=== PATIENT | male | born 1970 | race Caucasian/White ===

== ENCOUNTER 2016-10-14 08:24 | Emergency (ER) | payer MEDICARE, BC ==
[~2016-10-14] VITALS: Ht 182.9 cm; Wt 110.0 kg
[~2016-10-14 08:24] MED LIST: CLIN-73 PO; GLYB5TAB3 PO; METF-480 PO
[2016-10-14 08:25] VITALS: Ht 182.9 cm; Wt 110.0 kg
--- NOTE | 2016-10-14 08:38 | ERD ---
ER Documentation Chief Complaint Date/Time DATE: 10/14/16 Chief Complaint Abscess HPI The patient is a 46-year-old male with a history of diabetes mellitus, hypertension and schizophrenia who presents to the Emergency Department with complaint of an abscess to his buttock region. The patient reports a history of multiple similar prior abscesses, which occur every 6 months-1 year. They always occur in the same spot. He notes onset of these symptoms approximately one month ago, but states that his symptoms worsened two days ago. He reports pain, swelling, warmth and redness to his buttock region. He has not yet taken any medication for pain relief. Denies any bleeding, or spontaneous drainage. Denies fevers, chills, nausea, vomiting. Denies chest pain, palpitations or shortness of breath. Patient presents today requesting incision and drainage, as he has had in the past. ROS All systems reviewed and are negative except as per history of present illness. Medications Home Meds Active Scripts Clindamycin Hcl* (Clindamycin Hcl*) 300 Mg Capsule, 300 MG PO TID for 7 Days, CAP Prov:JV BRONSON PA-C 10/14/16 Clindamycin Hcl* (Clindamycin Hcl*) 300 Mg Capsule, 300 MG PO TID, #10 CAP Prov:MADI WATTS DO 09/25/15 Reported Medications Metformin* (Glucophage*) 850 Mg Tablet, PO BID, 0 Refills 03/31/10 Glyburide* (Glyburide*) 5 Mg Tablet, PO BID, 0 Refills 03/31/10 Allergies Allergies: Coded Allergies: No Known Allergy (Unverified , 02/28/13) PMhx/Soc History of Surgery: No Anesthesia Reaction: No Hx Neurological Disorder: No Hx Respiratory Disorders: No Hx Psychiatric Problems: No Hx Miscellaneous Medical Probl: Yes (DM) Hx Alcohol Use: No Hx Substance Use: No Hx Tobacco Use: No Physical Exam Vitals Vital Signs Date Time Temp Pulse Resp B/P Pulse Ox O2 Delivery O2 Flow Rate FiO2 10/14/16 08:25 98.0 72 18 175/76 99 Physical Exam Const: This is a pleasant 46-year-old male. Well-developed, well-nourished , in no acute distress. Head: Atraumatic Eyes: Normal Conjunctiva ENT: Normal External Ears, Nose and Mouth. Neck: Supple. Resp: Clear to auscultation bilaterally Cardio: Regular rate and rhythm, no murmurs Abd: Soft, non tender, non distended. Skin: 3 cm x 2 cm left-sided fluctuant, erythematous, tender perianal abscess. No spontaneous drainage. No bleeding. No crepitus. No scrotal involvement. No sinus tracts. Ext: No clubbing, cyanosis, or edema. Moving all extremities. Neur: Awake. Alert and oriented x 3. Motor intact. Psych: Cooperative. Results 24 hrs Current Medications Medications (Trade) Dose Ordered Sig/Aristeo Route PRN Reason Start Time Stop Time Status Last Admin Dose Admin Lidocaine (Xylocaine 1% (Mdv) 20 ml) 20 ml ONCE ONCE SC 10/14/16 09:00 10/14/16 09:01 DC Procedures/MDM The case was reviewed and discussed with Dr. Bella, who agrees with the plan of care including treatment and advanced imaging as appropriate. Considered CT abdomen and pelvis with IV contrast to rule out underlying perirectal abscess with fistula formation. However, given that patient has diabetes on Metformin, there is concern for contrast-induced nephropathy, and given the patient's history of schizophrenia, there is concern that he will not be compliant with recommendation to avoid Metformin for the following 48 hours, in order to reduce risk for nephropathy. Therefore, CT abdomen and pelvis without contrast appears to be the safer option at this time, and will be performed. DIAGNOSTIC TESTS AND INTERPRETATION: PROCEDURE: CT Abdomen and Pelvis without contrast. CLINICAL INDICATION: Perirectal vs. perianal abscess. TECHNIQUE: Routine axial tomographic images of the abdomen and pelvis were obtained from the domes the diaphragm to the symphysis pubis. The patient was scanned withoutoral or intravenous contrast. Coronal and sagittal reformatted images were obtained from the axial source images. Images were reviewed on a high-resolution PACS workstation. The total exam CTDI equals 22.19 mGy and the total exam DLP equals 1597.49 mGy-cm. One or more of the following dose reduction techniques were used: Automated exposure control, adjustment of the mA and / or kV according to patient size, or use of iterative reconstruction technique. The patient was unable to receive IV contrast secondary to metformin use and renal function. COMPARISON: None. FINDINGS: The visualized portions of the lung bases are clear. Evaluation of the intra-abdominal solid organs is somewhat limited on this noncontrast examination. The liver appears normal in size. There is no intra or extrahepatic biliary dilatation. The gallbladder is unremarkable by CT criteria. The spleen, pancreas, and adrenal glands are unremarkable. The kidneys are symmetric in size. No renal, ureteral, or bladder calculi are identified. No perinephric inflammatory changes are identified. The urinary bladder is grossly unremarkable. The bowel demonstrates normal course and caliber. There is no evidence of bowel obstruction. The appendix is normal in appearance. The pelvic organs are grossly unremarkable. No intraperitoneal free fluid, free air, or abscess is identified. No retroperitoneal, mesenteric, or inguinal lymphadenopathy is identified. The aorta is normal in caliber. Calcifications are seen within the infrarenal portion of the abdominal aorta. There is subtle fullness of the left perirenal soft tissues along the medial margin of the ischial tuberosity. The osseous structures are unremarkable. No significant subcutaneous soft tissue abnormalities are seen. IMPRESSION: 1. Limited noncontrast CT of the abdomen and pelvis. No acute intra-abdominal abnormality identified. 2. Mild asymmetric fullness of the left pararenal soft tissues along the medial margin of the ischial tuberosity. No definite abscess is seen. 3. Aortic atherosclerosis. .Elina Guillen MD, MD Date Time Electronically viewed and signed by .Elina Guillen MD, MD on 10/14/2016 09 :24 Of note, typo above, as radiologist called and meant to write "perianal" abscess. PROCEDURE: INCISION AND DRAINAGE OF ABSCESS INDICATION: Left perianal abscess CONSENT:Consent was obtained from the patient prior to the procedure. Indications, risks, and benefits were explained at length. PROCEDURE SUMMARY: A timeout protocol was performed prior to initiating the procedure. The patient was positioned appropriately. The area was prepared and draped in the usual sterile manner. The site was adequately anesthetized with approximately 2.5 cc 1% lidocaine without epinephrine. The are was cleaned/ irrigated with 10% betadine solution/NaCl. A sterile #11 blade scalpel was used to make a single linear 1 vertical incision and the copious drainage of purulent discharge was expressed. The abscess was explored thoroughly and sequestered pockets were opened. Bleeding was minimal. Packing: The wound was packed with iodoform gauze The patient tolerated the procedure well without complications. The wound was dressed with sterile 4 x 4 gauze and paper tape. Standard post-procedure care was explained and return precautions were given. MEDICAL DECISION MAKING: This is a 46-year-old male presenting to the emergency department with a left-sided perianal abscess that underwent incision and drainage. CT imaging performed revealed no evidence of perirectal abscess or fistula formation. No scrotal involvement or evidence of Epi's gangrene. The patient's abscess underwent I&D, and the patient tolerated the procedure well with no present complication. Packing was placed. At this time the patient is in stable condition and therefore he can be discharged home with a prescription for Clindamycin and given strict return precautions for signs of deteriorating or worsening condition. He is advised to follow up with his primary medical provider in 2 days for reevaluation and further management or to return to the ER sooner for any new or worsening symptoms. I shared my medical decision making and plan with the patient at length and in great detail , and he verbally understands and agrees with the plan for further observation and care as an outpatient. At the time of discharge, all questions were answered. Departure Diagnosis: Primary Impression: Perianal abscess Condition: Stable Patient Instructions: Abscess Drainage, Abscess, Antiobiotic Treatment Only, Abscess, Incision And Drainage Additional Instructions: FOLLOW UP IN 2 DAYS FOR WOUND CHECK, PACKING REMOVAL, REEVALUATION AND FURTHER MANAGEMENT. PLEASE TAKE ALL ANTIBIOTICS DIRECTED, FOUR TIMES A DAY, EVERY 6 HOURS. RETURN TO THE ED SOONER FOR ANY NEW OR WORSENING SYMPTOMS. PLEASE FOLLOW UP WITH YOUR PRIMARY MEDICAL PROVIDER FOR FURTHER EVALUATION AND MANAGEMENT. GIVEN THAT YOU HAVE BEEN EXPERIENCING THESE SYMPTOMS RECURRENTLY, EVERY 6 MONTHS - 1 YEAR, PLEASE DISCUSS REFERRAL TO GENERAL SURGEON FOR SURGICAL EVALUATION. JV BRONSON PA-C Oct 14, 2016 08:38
[2016-10-14] MEDS ORDERED: LIDOCAINE 1% (MDV) 20 ML INJ SC ONE (09:00)
--- NOTE | 2016-10-14 09:24 | RADRPT ---
PROCEDURE: CT Abdomen and Pelvis without contrast. CLINICAL INDICATION: Perirectal abscess. TECHNIQUE: Routine axial tomographic images of the abdomen and pelvis were obtained from the domes the diaphragm to the symphysis pubis. The patient was scanned withoutoral or intravenous contrast. Coronal and sagittal reformatted images were obtained from the axial source images. Images were re viewed on a high-resolution PACS workstation. The total exam CTDI equals 22.19 mGy and the total exa m DLP equals 1597.49 mGy-cm. One or more of the following dose reduction techniques were used: Aut omated exposure control, adjustment of the mA and / or kV according to patient size, or use of itera tive reconstruction technique. The patient was unable to receive IV contrast secondary to metformin use and renal function. COMPARISON: None. FINDINGS: The visualized portions of the lung bases are clear. Evaluation of the intra-abdominal solid or yvonne is somewhat limited on this noncontrast examination. The liver appears normal in size. There is no intra or extrahepatic biliary dilatation. The gallbladder is unremarkable by CT criteria. Th e spleen, pancreas, and adrenal glands are unremarkable. The kidneys are symmetric in size. No renal, ureteral, or bladder calculi are identified. No perine phric inflammatory changes are identified. The urinary bladder is grossly unremarkable. The bowel demonstrates normal course and caliber. There is no evidence of bowel obstruction. The a ppendix is normal in appearance. The pelvic organs are grossly unremarkable. No intraperitoneal fr ee fluid, free air, or abscess is identified. No retroperitoneal, mesenteric, or inguinal lymphadeno hieu is identified. The aorta is normal in caliber. Calcifications are seen within the infrarenal p ortion of the abdominal aorta. There is subtle fullness of the left perirenal soft tissues along the medial margin of the ischial tuberosity. The osseous structures are unremarkable. No significant subcutaneous soft tissue abnormalities are seen. IMPRESSION: 1. Limited noncontrast CT of the abdomen and pelvis. No acute intra-abdominal abnormality identifi ed. 2. Mild asymmetric fullness of the left pararenal soft tissues along the medial margin of the ischi al tuberosity. No definite abscess is seen. 3. Aortic atherosclerosis. RPTAT: .Elina Guillen MD, MD Date Time Electronically viewed and signed by .Elina Guillen MD, MD on 10/14/2016 09:24 .G/
[2016-10-14] MEDS ORDERED: CLIN-73 PO (09:49)
== END 2016-10-14 10:10 | disposition home or self-care (01) ==
LOC: FTE 08:24
DX: K61.0 Anal abscess (principal); E11.9 Type 2 diabetes mellitus without complications; I10 Essential (primary) hypertension; Z79.84 Long term (current) use of oral hypoglycemic drugs
CPT/HCPCS: 74176

== ENCOUNTER 2016-10-15 19:32 | Emergency (ER) | payer MEDICARE, BC ==
[~2016-10-15] VITALS: Ht 177.8 cm; Wt 116.5 kg
[2016-10-15 19:35] VITALS: Ht 177.8 cm; Wt 116.5 kg
--- NOTE | 2016-10-15 22:04 | ERD ---
ER Documentation Chief Complaint Date/Time DATE: 10/15/16 TIME: 22:00 Chief Complaint wound check- abscess right buttocks POSt i and D HPI Patient is a 46-year-old male who is here for a 24-hour wound check for a perirectal abscess that was drained here yesterday. Patient states he removed the packing yesterday. He has mild to moderate pain. Denies any continual bleeding or drainage. He states he has not yet picked up the antibiotics. Denies fever. ROS All systems reviewed and are negative except as per history of present illness. Medications Home Meds Active Scripts Clindamycin Hcl* (Clindamycin Hcl*) 300 Mg Capsule, 300 MG PO TID for 7 Days, CAP Prov:JV BRONSON PA-C 10/14/16 Clindamycin Hcl* (Clindamycin Hcl*) 300 Mg Capsule, 300 MG PO TID, #10 CAP Prov:MADI WATTS DO 09/25/15 Reported Medications Metformin* (Glucophage*) 850 Mg Tablet, PO BID, 0 Refills 03/31/10 Glyburide* (Glyburide*) 5 Mg Tablet, PO BID, 0 Refills 03/31/10 Allergies Allergies: Coded Allergies: No Known Allergy (Unverified , 02/28/13) PMhx/Soc Medical and Surgical Hx: pt denies Surgical Hx History of Surgery: No Anesthesia Reaction: No Hx Neurological Disorder: No Hx Respiratory Disorders: No Hx Psychiatric Problems: No Hx Miscellaneous Medical Probl: Yes (DM) Hx Alcohol Use: No Hx Substance Use: No Hx Tobacco Use: No FmHx Family History: No diabetes Physical Exam Vitals Vital Signs Date Time Temp Pulse Resp B/P Pulse Ox O2 Delivery O2 Flow Rate FiO2 10/15/16 19:35 97.9 109 20 181/103 98 Physical Exam General: well developed, well nourished, alert, nontoxic, no distress Head: normocephalic, atraumatic Neck: Supple, nontender, no lymphadenopathy, no midline tenderness Respiratory: Clear to auscaultation bilaterally, speaks in full sentences, no use of accesory muscles or labored breathing, no rales, ronchi, or wheezing Cardiovascular: RRR, No murmurs GI: soft, non tender, non distended, negative murphys sign, negative mcburneys point tenderness, no cva tenderness bilaterally, no rebound or guarding rectal: Healing abscess, no active bleeding or drainage, nontender, no fluctuance Results 24 hrs Current Medications Medications (Trade) Dose Ordered Sig/Aristeo Route PRN Reason Start Time Stop Time Status Last Admin Dose Admin Benazepril HCl (Lotensin) 10 mg ONCE ONCE PO 10/15/16 22:30 10/15/16 22:30 DC Procedures/MDM 46-year-old male is here for a wound check for a perirectal abscess that was drained yesterday. It is healing appropriately without any evidence of infection. Patient wants me to attempt to re-drained at this time however both myself and my colleague KULWANT Cintron and we agreed that there is no indication for further incision and drainage at this time. Patient has not yet picked up the antibiotics and I recommended he begin antibiotic treatment as recommended. Patient's blood pressure was elevated here in triage his blood pressure was 181/103 and then at time of discharge his blood pressure was 169/120. Patient states did not take his blood pressure medication benazepril this morning. I reviewed these blood pressure readings with my supervising physician Dr. Infante who recommended we give him a dose of his blood pressure medication here and monitor him until his blood pressure drops to a safe level. However patient did not want to wait and he signed out AGAINST MEDICAL ADVICE and he understands the risks of leaving with this elevated blood pressure including worsening of sx, complications, stroke, acs,or even . Patient however left before signing the AGAINST MEDICAL ADVICE sheet and therefore eloped. Recommended this patient follow up with her primary care doctor within 48 hours or return to the emergency room for any worsening of symptoms. However this time I do believe there is suitable for outpatient management. I answered all their questions and they agreed with the plan and were discharged home. Departure Diagnosis: Primary Impression: Perirectal abscess Additional Impression: Encounter for wound re-check Condition: Serious Patient Instructions: Wound Care Referrals: COMMUNITY CLINICS YOU HAVE RECEIVED A MEDICAL SCREENING EXAM AND THE RESULTS INDICATE THAT YOU DO NOT HAVE A CONDITION THAT REQUIRES URGENT TREATMENT IN THE EMERGENCY DEPARTMENT. FURTHER EVALUATION AND TREATMENT OF YOUR CONDITION CAN WAIT UNTIL YOU ARE SEEN IN YOUR DOCTORS OFFICE WITHIN THE NEXT 1-2 DAYS. IT IS YOUR RESPONSIBILITY TO MAKE AN APPOINTMENT FOR FOLOW-UP CARE. IF YOU HAVE A PRIMARY DOCTOR --you should call your primary doctor and schedule an appointment IF YOU DO NOT HAVE A PRIMARY DOCTOR YOU CAN CALL OUR PHYSICIAN REFERRAL HOTLINE AT IF YOU CAN NOT AFFORD TO SEE A PHYSICIAN YOU CAN CHOSE FROM THE FOLLOWING [facility] [id number] [facility] [address] [facility] [address] [facility] [address] [facility] [address] [facility] [facility] [address] Additional Instructions: Call your primary care doctor TOMORROW for an appointment during the next 1-2 days.See the doctor sooner or return here if your condition worsens before your appointment time. FCO CARLTON PA-C Oct 15, 2016 22:04
[2016-10-15] MEDS ORDERED: BENAZEPRIL 10 MG TAB PO ONE (22:30)
== END 2016-10-15 22:14 | disposition left against medical advice (07) ==
LOC: FTE 19:32
DX: K61.1 Rectal abscess (principal); E11.9 Type 2 diabetes mellitus without complications; I10 Essential (primary) hypertension; Z79.84 Long term (current) use of oral hypoglycemic drugs
CPT/HCPCS: 99281

== ENCOUNTER 2016-10-18 15:22 | Emergency (ER) | payer MEDICARE, BC ==
[~2016-10-18] VITALS: Wt 115.5 kg
--- NOTE | 2016-10-18 17:08 | ERD ---
ER Documentation Chief Complaint Date/Time DATE: 10/18/16 TIME: 17:06 Chief Complaint RECHECK ON RECTAL ABCESS, SEEN HERE 2 DAYS AGO WITH SAME S/S HPI This 46-year-old male presents with a rectal lesion. He was seen here twice this week and treated for a perirectal abscess. He had some incision and drainage and then a recheck for possible persistent swelling. Re-incision was not performed. Patient felt that there was possibly a recurrent abscess in and try to do a self incision and drainage at home with a steak knife. He complains of bleeding. He is requesting a recheck. Denies fevers, vomiting, shortness breath or chest pain. Patient is requesting suturing of the open wound on his rectum. ROS All systems reviewed and are negative except as per history of present illness. Medications Home Meds Active Scripts Clindamycin Hcl* (Clindamycin Hcl*) 300 Mg Capsule, 300 MG PO TID for 7 Days, CAP Prov:JV BRONSON PA-C 10/14/16 Clindamycin Hcl* (Clindamycin Hcl*) 300 Mg Capsule, 300 MG PO TID, #10 CAP Prov:MADI WATTS DO 09/25/15 Reported Medications Metformin* (Glucophage*) 850 Mg Tablet, PO BID, 0 Refills 03/31/10 Glyburide* (Glyburide*) 5 Mg Tablet, PO BID, 0 Refills 03/31/10 Allergies Allergies: Coded Allergies: No Known Allergy (Unverified , 10/18/16) PMhx/Soc History of Surgery: No Anesthesia Reaction: No Hx Neurological Disorder: No Hx Respiratory Disorders: No Hx Psychiatric Problems: No Hx Miscellaneous Medical Probl: Yes (DM) Hx Alcohol Use: No Hx Substance Use: No Hx Tobacco Use: No Smoking Status: Never smoker Physical Exam Vitals Vital Signs Date Time Temp Pulse Resp B/P Pulse Ox O2 Delivery O2 Flow Rate FiO2 10/18/16 15:27 97.5 111 18 181/100 95 Physical Exam Const: [] Alert, [id number]. Head: Atraumatic Eyes: Normal Conjunctiva ENT: Normal External Ears, Nose and Mouth. Neck: Full range of motion..~ No meningismus. Resp: Clear to auscultation bilaterally Cardio: Regular rate and rhythm, no murmurs Abd: Soft, non tender, non distended. Normal bowel sounds Skin: No petechiae or rashes Back: No midline or flank tenderness Ext: No cyanosis, or edema Neur: Awake and alert Psych: Normal Mood and Affect Rectal exam shows open healing wound with large thrombosis. There is no significant erythema, fluctuance appreciated. Procedures/MDM Large clots were removed from the open lesion on the patient's rectum. There is no appreciable abscess. He may have had an abscess prior but currently he has a clinical appearance of open thrombosed hemorrhoids and clots were removed. There is no active bleeding and the wound was dressed. Patient was advised that these conditions are not amenable to suturing should heal by secondary intention. Patient was discharged home with instructions for observation at home, warm soaks and return for increased redness, fevers, new worsening symptoms. Departure Diagnosis: Primary Impression: Bleeding external hemorrhoids Condition: Stable Patient Instructions: Thrombosed Hemorrhoids Additional Instructions: Warm soaks at home and recheck for worsening redness, pain, swelling, new symptoms. Continue medications at home. HANY EDWARDS MD Oct 18, 2016 17:08
== END 2016-10-18 17:18 | disposition home or self-care (01) ==
LOC: FTE 15:22
DX: K64.4 Residual hemorrhoidal skin tags (principal); E11.9 Type 2 diabetes mellitus without complications; I10 Essential (primary) hypertension; Z79.84 Long term (current) use of oral hypoglycemic drugs
CPT/HCPCS: 99282

== ENCOUNTER 2017-10-05 21:24 | Emergency (ER) | payer MEDICARE, BC ==
[~2017-10-05] VITALS: Ht 185.4 cm; Wt 118.8 kg
[2017-10-05 22:07] VITALS: Ht 185.4 cm; Wt 118.8 kg
[2017-10-06] MEDS ORDERED: CLIN-73 PO (03:16)
--- NOTE | 2017-10-06 03:16 | ERD ---
ER Documentation Chief Complaint Chief Complaint abscess on waist x 1 days. -fever, painful to touch HPI This 47-year-old male patient presents to emergency department for evaluation of a painful papule at anterior waist along pubic hair. Patient denies any fever, chills, denies squeezing or picking at lesion, reports he has had skin abscesses in the past possibly 2 times a year denies any MRSA history that he knows of. ROS All systems reviewed and are negative except as per history of present illness. Medications Home Meds Active Scripts Clindamycin Hcl* (Clindamycin Hcl*) 300 Mg Capsule, 300 MG PO TID for 7 Days, CAP Prov:JV BRONSON PA-C 10/14/16 Clindamycin Hcl* (Clindamycin Hcl*) 300 Mg Capsule, 300 MG PO TID, #10 CAP Prov:MADI WATTS DO 09/25/15 Reported Medications Metformin* (Glucophage*) 850 Mg Tablet, PO BID, 0 Refills 03/31/10 Glyburide* (Glyburide*) 5 Mg Tablet, PO BID, 0 Refills 03/31/10 Allergies Allergies: Coded Allergies: No Known Allergy (Unverified , 10/05/17) PMhx/Soc Medical and Surgical Hx: pt denies Medical Hx, pt denies Surgical Hx History of Surgery: No Anesthesia Reaction: No Hx Neurological Disorder: No Hx Respiratory Disorders: No Hx Psychiatric Problems: No Hx Miscellaneous Medical Probl: Yes (DM) Hx Alcohol Use: No Hx Substance Use: No Hx Tobacco Use: No Physical Exam Vitals Vital Signs Date Time Temp Pulse Resp B/P Pulse Ox O2 Delivery O2 Flow Rate FiO2 10/05/17 22:07 97.7 100 20 175/89 95 Vitals stable, triage notes reviewed Physical Exam Const: Well-nourished, well-appearing,well-hydrated 47-year-old male patient in no acute distress Neck: Full range of motion..~ No meningismus. Resp: Clear to auscultation bilaterally Cardio: Regular rate and rhythm, no murmurs Abd: Soft, non tender, non distended Skin: Slightly left anterior midline presents with a 1 cm by half a centimeter raised tender papule with erythemic base Neur: Awake and alert Psych: Normal Mood and Affect Procedures/MDM Abscess Incision and Drainage with irrigation by me: Location: Slightly left mid anterior abdomen along pubic hair presents with a soft erythemic papule 1 cm x 0.5 cm Anesthesia: Not indicated Technique: Simple needle aspiration Packing: None Complications: Neurovascularly intact post procedure 48 hour wound check. Scar minimization instructions given. This 47-year-old male patient presents to emergency department for a painful papule located in pubic hair anteriorly. Patient reports sudden onset 2-3 days ago. Denies nausea vomiting fever chills, emergency room course includes history and physical exam, exam is positive for furuncle, small area of pubic hair removed with a razor, skin cleaned in usual fashion and 18-gauge needle aspiration without complications. Small purulent collection removed with serosanguineous drainage. Site covered with dry dressing patient placed on clindamycin. Patient instructed to follow-up with primary care physician, return to emergency department in 48 hours for wound reevaluation. Patient is stable with no new complaints during ER course, clinically there is no current evidence to suggest necrotizing fasciitis, foreign body, Louise-Anirudh syndrome, diabetic ulcer, or any other emergent condition appearing to require further evaluation or hospitalization. I feel the patient is stable for discharge at this time. I have discussed results, examination findings, the treatment plan with the patient and family present prior to discharge. Indications for emergent reevaluation, side effects of medication were also discussed. All questions were answered. Patient verbalizes understanding and agrees with plan of care. Departure Diagnosis: Primary Impression: Furuncle Condition: Good Patient Instructions: Abscess Drainage Additional Instructions: Thank you for for coming to [facility] for your care today. Please ask your nurse or provider if you have questions about your care today and do not leave until all your questions have been answered. Please use any medications given as directed and follow-up with your doctor (or the doctor you were referred to) in the next 2-3 days. If you do not have a primary care doctor you may follow up at the [facility] (listed below). You may also use motrin and tylenol as needed for fever and/or pain unless instructed otherwise by your provider or nurse. Indications for more urgent follow-up have been discussed, but you may return to the Emergency Department at ANY time for any worrisome or worsening symptoms. If you have abdominal pain, please know that no test or exam you received is perfect and you should follow up within 8 hours for continued pain. If you had any imaging studies today, such as an X-Ray or CT Scan, these studies will be reviewed later by a radiologist. You will be called if there are important findings that were not identified today, so make sure the contact information you provided at registration is correct. If you received any narcotic pain control medicine today, such as Vicodin, Morphine or Dilaudid, your coordination and judgment may be affected for a number of hours. Please do not drive or operate heavy machinery, and you may want someone to assist you at home. If you were given a prescription for narcotic medication, be aware that it is very addictive- use sparingly and only if necessary. RODRIGO SWAN Oct 06, 2017 03:14
== END 2017-10-06 03:30 | disposition home or self-care (01) ==
LOC: FTE 21:24
DX: L02.221 Furuncle of abdominal wall (principal); E11.9 Type 2 diabetes mellitus without complications; Z79.84 Long term (current) use of oral hypoglycemic drugs

== ENCOUNTER 2018-01-11 09:13 | Emergency (ER) | END 2018-01-11 13:53 | disposition home or self-care (01) ==

== ENCOUNTER 2018-04-29 09:33 | Emergency (ER) | END 2018-04-29 11:13 | disposition home or self-care (01) ==